=== PATIENT | male | born 1990 | race African-American/Black ===

== ENCOUNTER 2016-12-03 13:29 | Emergency (ER) | payer OTHER ==
[2016-12-03 13:42] VITALS: BP 127/65
[2016-12-03] MEDS ORDERED: ASPIRIN PO STA (14:40)
--- NOTE | 2016-12-03 15:19 | ED EKG INTERP ---
EKG Interpretation - EKG Time of EKG reading by physician:: 14:49 EKG Read and Signed by:: Evaristo Tamayo EKG Interpretation (*Must complete 3 of following elements*): Abnormal ( Possible left atrial enlargment, possilbe anterior infract, age undetermined) Rate: 94 Rhythm: Normal Sinus rhythm Attestation - Scribe Verification/Attestation Scribe:: Zhanna Cruz Acting as Scribe for:: Evaristo Tamayo Scribe documention review:: This chart was documented by a scribe and accurately reflects the service the provider performed and the decisions made by the provider.
[2016-12-03 15:28] LABS: BASO% 0.1 % (0.0-0.8); EOS# 0.01 X1000 (0.0-0.7); EOS% 0.1 % (0.0-10.0); HEMOGLOBIN 15.5 g/dL (14.0-18.0); IMM GRAN# 0.01 X1000 (0.0-0.04); IMM GRAN% 0.1 % (0.0-0.5); LYMPH# 0.42 X1000 (1.2-3.4); LYMPH% 4.6 % (20.5-51.1); MANUAL DIFF NEEDED? NO; MCH 29.1 PG (27-31); MCHC 33.7 g/dL (33-37); MCV 86.3 FL (81-99); MONO# 0.49 X1000 (0.11-0.59); MONO% 5.4 % (1.7-9.3); MPV 10.6 FL (7.4-10.4); NEUT% 89.7 % (42.2-75.2); PLT 218 X1000 (130-400); RBC 5.33 XMIL (4.7-6.1)
--- NOTE | 2016-12-03 15:29 | Diag Imaging Result Document ---
PROCEDURE NAME: CHEST-2 VIEWS - 12/03/2016 CHEST X-RAY 2 VIEWS: COMPARISON: None. FINDINGS: There is a calcified granuloma in the right lower lobe. No focal infiltrates, pneumothorax, or pleural effusion. Heart size is normal. IMPRESSION: Negative exam.
[2016-12-03 15:42] LABS: INR 1.05 (0.86-1.15); PTT PL 30.9 Seconds (22.6-43.9)
[2016-12-03 15:44] LABS: AGAP 11; ALBUMIN 4.8 g/dL (3.5-5.0); ALKALINE PHOSPHATASE 82 U/L (32-122); BUN 10 mg/dL (8-22); CALCIUM 9.3 mg/dL (8.8-10.2); CHLORIDE 101 mmol/L (98-107); COSMO 275; GOT 33 U/L (10-34); GPT 25 U/L (10-44); POTASSIUM 4.2 mmol/L (3.5-5.1); SODIUM 138 mmol/L (136-145); TCO2 26 mmol/L (25-35); TOTAL PROTEIN 7.7 g/dL (6.3-8.3)
[2016-12-03 15:48] LABS: CK PROFILE 762 U/L (24-204)
--- NOTE | 2016-12-03 15:58 | EKG Report ---
Test Performed on : 12/03/2016 2:49:15 PM Test Reason : CHEST PAIN Blood Pressure : / mmHG Vent. Rate : 094 BPM Atrial Rate : 094 BPM P-R Int : 154 ms QRS Dur : 084 ms QT Int : 354 ms P-R-T Axes : 042 001 013 degrees QTc Int : 442 ms Normal sinus rhythm. Possible Left atrial enlargement Possible Anterior infarct , age undetermined Abnormal ECG No previous ECGs available Unconfirmed Result
[2016-12-03] MEDS ORDERED: G.I. COCKTAIL PO ONE (16:00)
[2016-12-03 16:04] LABS: CK INDEX 0.3 (0.0-2.5)
--- NOTE | 2016-12-03 17:08 | EKG Report ---
Test Performed on : 12/03/2016 4:59:02 PM Test Reason : chest pain Blood Pressure : / mmHG Vent. Rate : 099 BPM Atrial Rate : 099 BPM P-R Int : 150 ms QRS Dur : 088 ms QT Int : 346 ms P-R-T Axes : 047 006 011 degrees QTc Int : 444 ms Normal sinus rhythm. Nonspecific T wave abnormality Abnormal ECG When compared with ECG of 03-DEC-2016 14:49, (Unconfirmed) No significant change was found Unconfirmed Result
[2016-12-03 17:12] LABS: UR AMPHETAMINES QUAL NONE DETECTED (NONE DETECT); UR BARBITUATES QUAL NONE DETECTED (NONE DETECT); UR BENZODIAZEPIN QUAL NONE DETECTED (NONE DETECT); UR CANNABINOIDS QUAL NONE DETECTED (NONE DETECT); UR COCAINE QUAL NONE DETECTED (NONE DETECT); UR MDMA QUAL NONE DETECTED (NONE DETECT); UR METHADONE QUAL NONE DETECTED (NONE DETECT); UR METHAMPHETAMINE QUAL NONE DETECTED (NONE DETECT); UR OPIATES QUAL NONE DETECTED (NONE DETECT); UR OXYCODONE QUAL NONE DETECTED (NONE DETECT); UR PCP QUAL NONE DETECTED (NONE DETECT); UR TCA QUAL NONE DETECTED (NONE DETECT)
[2016-12-03 18:08] LABS: CK INDEX 0.3 (0.0-2.5); CK-MB 2.3 ng/mL (0.0-5.0)
--- NOTE | 2016-12-03 18:20 | PROVIDER DOCUMENTATION ---
HPI-Chest Pain - General Chief Complaint: Chest Pain Stated Complaint: CHEST PAIN Time Seen by Provider: 12/03/16 15:57 Source: patient Allergies/Adverse Reactions: Patient Allergies Allergy/AdvReac Type Severity Reaction Status Date / Time No Known Allergies Allergy Verified 12/03/16 13:36 Home Medications: Home Medication List Medication Instructions Recorded Confirmed Last Taken Type Omeprazole [Prilosec] 20 mg PO HS #30 capsule 12/03/16 Unknown Rx - History of Present Illness-CP Nature of Presenting Problem: 26 yo male presents to ER with c/o midsternal chest pain and epigastric pain since yesterday. Family history of heart issues at age 30. Location: reports: substernal Chest Pain Radiation: reports: no radiation Quality of Pain: reports: pressure Severity in ED: moderate Onset/Duration: 24 hours ago Timing: still present, intermittent Context/Activities at Onset: reports: none Modifying Factors: improves with: nothing Associated Symptoms: reports: denies symptoms Nitro Today/Relief: no nitro taken today Aspirin Treatment Today: 325 mg x 1, provided by ED Prior Chest Pain/Cardiac Workup: reports: no prior chest pain, no prior cardiac workup Similar Symptoms Previously?: No Recently Seen Here or By Another Healthcare Provider: No Review of Systems - Adult - REVIEW OF SYSTEMS - ADULT Constitutional: reports: no symptoms reported Eyes: reports: no symptoms reported Ears, Nose, Mouth & Throat: reports: no symptoms reported Cardiovascular: reports: no symptoms reported Respiratory: reports: no symptoms reported Gastrointestinal: reports: no symptoms reported Genitourinary: reports: no symptoms reported Musculoskeletal: reports: no symptoms reported Integumentary: reports: no symptoms reported Neurological: reports: no symptoms reported Psychiatric: reports: no symptoms reported Endocrine: reports: no symptoms reported Hematologic/Lymphatic: reports: no symptoms reported Allergic/Immunologic: reports: no symptoms reported All Other Systems: Reviewed and Negative Past History - Adult - PAST MEDICAL HISTORY-ADULT Review of Records: reports: Old Records Reviewed, Nursing Assessment Review, Medications Reviewed, Social history reviewed & non-contributory. Major Childhood Illnesses: reports: denies history Cardiovascular: reports: denies history Respiratory: reports: denies history Gastrointestinal: reports: denies history Obstetrical/Gynecological: reports: denies history Genitourinary: reports: denies history Musculoskeletal: reports: denies history Neurological: reports: denies history Endocrine/Immune: reports: denies history Other Conditions: reports: denies history - PRIOR SURGERIES/PROCEDURES Surgical/Procedure History: reports: orthopedic (extremity) (bilateral knee sx; left rotator cuff repair) - IMMUNIZATION STATUS Childhood Immunizations: See Nurse Assessment Flu Vaccine: See Nurse Assessment - FAMILY HISTORY Family History: CAD under 55yo (grandparents at age 30) - SOCIAL HISTORY Smoking: denies, non-smoker Substance Use: none/never, denies Living Situation: family Physical Exam-General - PHYSICAL EXAM-ADULT Initial Vital Signs Reviewed: Yes - CONSTITUTIONAL General Appearance: appears well, alert, no apparent distress - EYES Eyes: PERRL/EOMI, pink conjunctivae - HEAD, EARS, NOSE, MOUTH & THROAT HENMT: normocephalic/atraumatic, moist mucous membranes - NECK Neck: supple - RESPIRATORY Respiratory: lungs clear, normal breath sounds, no respiratory distress - CARDIOVASCULAR Cardiovascular: normal peripheral pulses, regular rate, rhythm - GASTROINTESTINAL (ABDOMEN) Abdominal Exam: normal bowel sounds, soft, tenderness (epigastric area) Progress - PLAN OF CARE/RESULTS Progress/Plan/Lab Results: 1809-Discussed results/dx/tx/discharge and follow up instructions with patient and spouse; they verbalized understanding. Laboratory Tests 12/03/16 12/03/16 12/03/16 15:12 15:12 15:12 WBC RBC Hgb Hct MCV MCH MCHC RDW Std Deviation Plt Count MPV Immature Gran % (Auto) Neut % (Auto) Lymph % (Auto) [place] % (Auto) Eos % (Auto) Baso % (Auto) Immature Gran # (Auto) Neut # (Auto) Lymph # (Auto) [place] # (Auto) Eos # (Auto) Baso # (Auto) PT INR APTT (Factor Assay) D-Dimer Sodium 138 Potassium 4.2 Chloride 101 Carbon Dioxide 26 Anion Gap 11 BUN 10 Creatinine 1.0 Estimated GFR/1.73 m2 > 60 BUN/Creatinine Ratio 10 Glucose 109 H Calculated Osmolality 275 Calcium 9.3 Magnesium 2.0 Total Bilirubin 0.70 AST 33 ALT 25 Alkaline Phosphatase 82 Creatine Kinase 762 H Creatine Kinase Index 0.3 CK-MB (CK-2) 2.50 Troponin T < 0.010 Ypp-N-Eeykmwrsysr Pept 11 Total Protein 7.7 Albumin 4.8 Globulin 3.0 Albumin/Globulin Ratio 2.0 Urine Opiates Screen Ur Oxycodone Screen Urine Methadone Screen Ur Barbituates Screen Ur Tricyclics Screen Ur Phencyclidine Scrn Ur Amphetamines Screen U Methamphetamines Scrn Urine MDMA Screen U Benzodiazepines Scrn Urine Cocaine Screen U Cannabinoids Screen 12/03/16 12/03/16 12/03/16 15:12 15:12 16:56 WBC 9.07 RBC 5.33 Hgb 15.5 Hct 46.0 MCV 86.3 MCH 29.1 MCHC 33.7 RDW Std Deviation 12.7 Plt Count 218 MPV 10.6 H Immature Gran % (Auto) 0.1 Neut % (Auto) 89.7 H Lymph % (Auto) 4.6 L [place] % (Auto) 5.4 Eos % (Auto) 0.1 Baso % (Auto) 0.1 Immature Gran # (Auto) 0.01 Neut # (Auto) 8.13 H Lymph # (Auto) 0.42 L [place] # (Auto) 0.49 Eos # (Auto) 0.01 Baso # (Auto) 0.01 PT 14.0 INR 1.05 APTT (Factor Assay) 30.9 D-Dimer 0.30 Sodium Potassium Chloride Carbon Dioxide Anion Gap BUN Creatinine Estimated GFR/1.73 m2 BUN/Creatinine Ratio Glucose Calculated Osmolality Calcium Magnesium Total Bilirubin AST ALT Alkaline Phosphatase Creatine Kinase Creatine Kinase Index CK-MB (CK-2) Troponin T Lsp-G-Twqhpmldyya Pept Total Protein Albumin Globulin Albumin/Globulin Ratio Urine Opiates Screen NONE DETECTED Ur Oxycodone Screen NONE DETECTED Urine Methadone Screen NONE DETECTED Ur Barbituates Screen NONE DETECTED Ur Tricyclics Screen NONE DETECTED Ur Phencyclidine Scrn NONE DETECTED Ur Amphetamines Screen NONE DETECTED U Methamphetamines Scrn NONE DETECTED Urine MDMA Screen NONE DETECTED U Benzodiazepines Scrn NONE DETECTED Urine Cocaine Screen NONE DETECTED U Cannabinoids Screen NONE DETECTED 12/03/16 12/03/16 17:05 17:05 WBC RBC Hgb Hct MCV MCH MCHC RDW Std Deviation Plt Count MPV Immature Gran % (Auto) Neut % (Auto) Lymph % (Auto) [place] % (Auto) Eos % (Auto) Baso % (Auto) Immature Gran # (Auto) Neut # (Auto) Lymph # (Auto) [place] # (Auto) Eos # (Auto) Baso # (Auto) PT INR APTT (Factor Assay) D-Dimer Sodium Potassium Chloride Carbon Dioxide Anion Gap BUN Creatinine Estimated GFR/1.73 m2 BUN/Creatinine Ratio Glucose Calculated Osmolality Calcium Magnesium Total Bilirubin AST ALT Alkaline Phosphatase Creatine Kinase 699 H Creatine Kinase Index 0.3 CK-MB (CK-2) 2.30 Troponin T < 0.010 Kqy-V-Dnmwpfsyspr Pept Total Protein Albumin Globulin Albumin/Globulin Ratio Urine Opiates Screen Ur Oxycodone Screen Urine Methadone Screen Ur Barbituates Screen Ur Tricyclics Screen Ur Phencyclidine Scrn Ur Amphetamines Screen U Methamphetamines Scrn Urine MDMA Screen U Benzodiazepines Scrn Urine Cocaine Screen U Cannabinoids Screen Orders Category Date Time Status Cardiac Monitoring DIRECTED Care 12/03/16 14:41 Active Oxygen Therapy- ED Nursing DIRECTED Care 12/03/16 14:41 Active Saline Loc NOW Care 12/03/16 14:41 Active CHEST-2 VIEWS [RAD] Stat Exams 12/03/16 14:41 Completed CBC WITH ELECTRONIC DIFF [HEME] Stat Lab 12/03/16 15:12 Completed CK PROFILE [SP CHEM] Stat Lab 12/03/16 15:12 Completed CK PROFILE [SP CHEM] Stat Lab 12/03/16 17:05 Completed COMPREHENSIVE METABOLIC PANEL [CHEM] Stat Lab 12/03/16 15:[address] D-DIMER PL [COAG] Stat Lab 12/03/16 15:12 Completed MAGNESIUM [CHEM] Stat Lab 12/03/16 15:12 Completed PRO B-NATRIURETIC PEPTIDE Stat Lab 12/03/16 15:12 Completed [address]IME WITH INR PL [COAG] Stat Lab 12/03/16 15:[address] [COAG] Stat Lab 12/03/16 15:12 Completed TROPONIN T Stat Lab 12/03/16 15:12 Completed TROPONIN T Stat Lab 12/03/16 17:05 Completed UDS [URINE DRUG SCREEN PL] Stat Lab 12/03/16 16:56 Completed Aspirin Med 12/03/16 14:40 Discontinued 325 mg PO STAT STA Lido/Gibbs Alk/Al&mg Hydrox [G.i. Cocktail] Med 12/03/16 16:00 Discontinued 30 ml PO NOW ONE EKG [EKG] Stat Ther 12/03/16 14:41 Draft EKG [EKG] Stat Ther 12/03/16 16:57 Draft Vital Signs - 24 hr 12/03/16 12/03/16 13:36 18:30 Temperature 97.3 F L Pulse Rate 93 H 78 Respiratory 16 18 Rate Blood Pressure 127/65 O2 Sat by Pulse 99 100 Oximetry - REASSESSMENT Reassessment #1 Time Reassessed: 18:00 Status: improving - XRAY 1 XRAY Study: Chest Impression: Normal (NAD) XRAY Interpretation: Interpreted by Dr. Maldonado Departure - Departure Time of Disposition Order: 18:19 DIAGNOSIS: Stress at home, Family history of chest pain GERD (gastroesophageal reflux disease) Qualifiers: Esophagitis presence: without esophagitis Qualified Code(s): K21.9 - Gastro- esophageal reflux disease without esophagitis Chest pain Qualifiers: Chest pain type: unspecified Qualified Code(s): R07.9 - Chest pain, unspecified Disposition: HOME 01 Certified Medical Emergency: Emergent Condition: Good Additional Instructions: Follow up with doctor at [place]. Watch diet- no carbonated beverages, greasy , fatty foods. Do not lie down for at least 2 hours after eating. ED Follow Up Instructions: You have been treated by a care provider in the Emergency Department. These instructions are being provided to you so you can have an understanding of how to care for yourself upon discharge. Upon discharge from the Emergency Department, you are responsible for making arrangements for follow-up care by a physician of your choice. Take all prescribed medications as directed. Return to the Emergency Department immediately for any new or worsening symptoms. You may call the Physician Referral phone number at [phone] to obtain a list of Physicians who are taking new patients. Prescriptions: Omeprazole [Prilosec] 20 mg PO HS #30 capsule Referrals: Barry Manzano MD [STAFF PHYSICIAN] - None,PCP [Primary Care Provider] - Forms: Return to School/Parent Work Instructions: Nonspecific Chest Pain, Gastroesophageal Reflux Disease, Adult, Omeprazole tablets (OTC) Attestation - Physician/ GIANFRANCO Attestation Patient care was provided by Advanced Practice Provider:: Yes Advanced Practice Provider:: Love Gooden Advanced Practice Provider documentation review:: The Mid-level provider documentation, treatment plan and medical decision making was reviewed by the physician who agrees with all treatment and medical decision making by the MLP.
== END 2016-12-03 18:30 | disposition home or self-care (01) ==
LOC: P.ED 13:29
DX: K21.9 Gastro-esophageal reflux disease without esophagitis (principal); R07.89 Other chest pain; F43.9 Reaction to severe stress, unspecified; R94.31 Abnormal electrocardiogram [ECG] [EKG]; R10.13 Epigastric pain; R10.816 Epigastric abdominal tenderness; Z82.49 Family history of ischemic heart disease and other diseases of the circulatory system
CPT/HCPCS: 36415; 71020; 80053; 80305; 82550; 82553; 83735; 83880; 84484; 85025; 85379; 85610; 85730; 93005; 99284